=== PATIENT | female | born 1940 | race Caucasian/White ===

== ENCOUNTER → 2017-03-21 | Outpatient (CLI) | payer OTHER, BC ==
[~2017-03-21] MED LIST: ACETAMINOPHEN325 M1 PO; ASPIR 8181 M1 PO; AVALIDE 300-121 EACH PO; BENZONATATE100 MG PO; BIAXIN 500 MG500 M1 PO; BREO ELLIPTA 21 EACH INH; CALCIUM OYSTER500 MG PO; CENTRUM SILVER1 EAC2 PO; COUMADIN 2.5MG2.5 M1 PO; COZAAR 25 MG TA25 M1 PO; CYMBALTA60 MG PO; DICLOFENAC SODI75 MG PO; DILTIAZEM ER180 MG PO; DILTIAZEM ER240 M1 PO; DOXYCYCLINE 10100 MG PO; DULERA 200 MCG/13 GM IH; ESTRACE0.5 MG PO; FISHOIL PO; FLONASE 0.05%50 MCG NASAL; IRON325 PO; KLOR-CON 1010 MEQ PO; LEVAQUIN 500 M500 M1 PO; LEXAPRO 10 MG T10 M1 PO; LORTAB 10 MG-3473 ML PO; LOSARTAN-HCTZ1 EAC3 PO; LOSARTAN-HCTZ1 EACH PO; MAALOX SUSPENS148 ML PO; MULTIVITAMINS PO; MULTIVITAMINS1 EAC7 PO; NEURONTIN 300300 M1 PO; NORVASC5 MG PO; PREDNISONE 10 M10 M1 PO; PREDNISONE 20 M20 M1 PO; PREDNISONE 20 M20 MG PO; PREDNISONE PO; PROTONIX40 M2 PO; PROVERA2.5 MG PO; PULMICORT0.5 MG/21 IH; SAVAYSA30 MG PO; TESSALON PERLE100 MG PO; TRAMADOL 50 MG50 MG PO; TRAZODONE HCL50 MG PO; TUDORZA PRESS400 MCG IH; XOPENEX HF1 UDINHALE INH; XOPENEX0.31 MG/3 INH; XOPENEX0.63 MG/3 IH
--- NOTE | ~2017-03-21 | SLE ---
[facility] [place] [address] POLYSOMNOGRAPHY STUDY Name: SHAKIR DODSON Room #: [facility]#: [id number] Admission: Attend Phys: Kathrine Olivarez MD Discharge: Date of : 44 Report #: [id number] THIS REPORT FOR: //name// CC: Kathrine Juárez The patient with history of sleep apnea, daytime somnolence and fatigue. A 76-year-old, height 5 feet 6-1/2 inches, weight 157. COMMENTS: Arrhythmias noted. Total sleep time 362 minutes, sleep efficiency 82%. Sleep latency 9 minutes, REM latency 352 minutes. Sleep stage: 1-15, 2-77, REM-7, 3-1%. Central apnea 0, mixed apnea 0, obstructive apnea 1, hypopnea 5. Apnea-hypopnea index 1 event per sleep hour. Non-REM 1, REM apnea-hypopnea index 2.3 events per sleep hour. Supine apnea-hypopnea index 1.4, right lateral 0.5. Periodic limb movement with arousal index 10 events per sleep hour. Low oxygen saturation 88%, spending less than 1% of recording time less than 90%. Premature ventricular contractions noted. IMPRESSION: 1. History of obstructive sleep apnea. 2. Apnea-hypopnea index during the study was 1 event per sleep hour. 3. Periodic limb movement with arousal index of 10 events per sleep hour. 4. Premature ventricular contractions noted. 5. Snoring noted SUGGESTIONS: 1. In addition to specific therapy, the patient should be cautioned regarding driving or operating dangerous machinery unless fully alert. The patient should be cautioned regarding the use of respiratory depressants. 2. Oral appliance or appropriate surgery may be considered with appropriate followup. 3. Further evaluation regarding etiology of daytime somnolence is recommended. <ELECTRONICALLY SIGNED> By: Kathrine Olivarez MD 04/13/172104 09 57 Kathrine Olivarez MD /nt
== END ==
LOC: SLEEPLAB 07:57
DX: G47.33 Obstructive sleep apnea (adult) (pediatric) (principal); R06.83 Snoring

== ENCOUNTER → 2017-11-21 | Outpatient (CLI) | payer OTHER, BC | LOC: RAD 12:15 | DX: J44.9 Chronic obstructive pulmonary disease, unspecified (principal); I70.0 Atherosclerosis of aorta; I10 Essential (primary) hypertension ==

== ENCOUNTER → 2017-12-01 | Outpatient (CLI) | payer OTHER, BC ==
--- NOTE | ~2017-12-01 | 2DMMODE ---
[facility] [employer] [address] [place] [address] 2 D/M-MODE ECHOCARDIOGRAM Name: SHAKIR DODSON Room #: [facility]#: [id number] Admission: 12/01/17 Attend Phys: Mamadou Johnson Discharge: Date of : 44 Date of Service: 12/01/17 1511 Report #: [id number] THIS REPORT FOR: //name// APPROVED REPORT Study performed: 12/01/2017 14:21:03 EXAM: Comprehensive 2D, Doppler, and color-flow Echocardiogram Patient Location: Out-Patient Status: routine BSA: 1.85 HR: 78 bpm BP: 164/79 mmHg Rhythm: NSR/Irregular Other Information Study Quality: Adequate Indications DON. Hx: Afib, trivial pericardial effusion, HTN, HLP, COPD 2D Dimensions RVDd: 39.07 mm LVEF(%): 59.19 (>50%) IVSd: 11.00 (7-11mm) LVOT Diam: 19.85 (18-24mm) LVDd: 39.56 mm PWd: 11.00 (7-11mm) Ascending Ao: 29.48 (22-36mm) LVDs: 27.32 (25-40mm) Aortic Root: 31.93 mm Wellington's LVEF: 59.19 % Volumes Left Atrial Volume (Systole) Single Plane 4CH: 50.89 mL Single Plane 2CH: 51.05 mL LA ESV Index: 29.00 mL/m2 Aortic Valve AoV Peak Alfredo.: 1.41 m/s AO Peak Gr.: 7.99 mmHg LVOT Max P.96 mmHg LVOT Max V: 1.00 m/s JAMIE Vmax: 2.18 cm2 Mitral Valve E/A Ratio: 0.9 MV Decel. Time: 224.50 ms [facility] [employer] [place] [address] 2 D/M-MODE ECHOCARDIOGRAM Name: SHAKIR DODSON Room #: [facility]#: [id number] Admission: 12/01/17 Attend Phys: Mamadou Johnson Discharge: Date of : 44 Date of Service: 12/01/17 1511 Report #: [id number] MV E Max Alfredo.: 0.87 m/s MV A Alfredo.: 1.01 m/s MV PHT: 65.11 ms IVRT: 72.66 ms Pulmonary Valve PV Peak Alfredo.: 1.02 m/s PV Peak Gr.: 4.18 mmHg Tricuspid Valve TR Peak Alfredo.: 2.95 m/s RAP Estimate: 5.00 mmHg TR Peak Gr.: 34.83 mmHg PA Pressure: 40.00 mmHg Left Ventricle The left ventricle is normal size. There is normal LV segmental wall motion. There is normal left ventricular wall thickness. Left ventricular systolic function is normal. LVEF is 60%. Mild diastolic dysfunction is present (impaired relaxation pattern). Right Ventricle The right ventricle is normal size. The right ventricular systolic function is normal. Atria The left atrium size is normal. The right atrium size is normal. Aortic Valve Aortic valve is mildly calcified. Trace aortic regurgitation. There is no aortic valvular stenosis. Mitral Valve Mitral valve leaflets are thickened. Mild mitral annular calcification. Mild mitral regurgitation. Tricuspid Valve The tricuspid valve is normal in structure. Mild tricuspid regurgitation. Estimated PAP is 40mmHg. Pulmonic Valve The pulmonary valve is normal in structure. Trace pulmonic regurgitation. Great Vessels The aortic root is normal in size. The ascending aorta is normal in size. IVC is normal in size and collapses >50% with [facility] [address] [place] [address] 2 D/M-MODE ECHOCARDIOGRAM Name: WESTSHAKIR Room #: REG [facility]#: [id number] Admission: 12/01/17 Attend Phys: Mamadou Johnson Discharge: Date of : 44 Date of Service: 12/01/17 1511 Report #: [id number] inspiration. Pericardium Small pericardial effusion noted. <Conclusion> The left ventricle is normal size. There is normal left ventricular wall thickness. Left ventricular systolic function is normal. Mild diastolic dysfunction is present (impaired relaxation pattern). The right ventricle is normal size. The left atrium size is normal. Aortic valve is mildly calcified. Trace aortic regurgitation. Mild mitral annular calcification. Mild mitral regurgitation. Mild tricuspid regurgitation. Estimated PAP is 40mmHg. <ELECTRONICALLY SIGNED> By: Jamarcus Rojas MD 12/01/171510 10 10 Jamarcus Rojas MD /INF
[2017-12-01 11:18] LABS: BE(vivo) 0.3 mmol/L (-2 to +3); HCO3 24.8 mmol/L (22.0-26.0); PCO2 39.6 mmHg (35.0-45.0); PO2 64.4 mmHg (80.0-100.0); pH 7.415 (7.360-7.450); sO2 92.9 % (92.0-98.0)
[2017-12-01 13:58] LABS: CREATININE 0.9 mg/dL (0.6-1.0)
== END ==
LOC: CV 10:11 → PUL 10:11
PROVIDERS: Internal Medicine Pulmonary Disease
DX: I25.10 Atherosclerotic heart disease of native coronary artery without angina pectoris (principal); I08.1 Rheumatic disorders of both mitral and tricuspid valves; I31.3 Pericardial effusion (noninflammatory); I48.91 Unspecified atrial fibrillation; I10 Essential (primary) hypertension; E78.5 Hyperlipidemia, unspecified; J44.9 Chronic obstructive pulmonary disease, unspecified; I70.0 Atherosclerosis of aorta; I70.8 Atherosclerosis of other arteries